=== PATIENT | female | born 1950 | race Caucasian/White ===

== ENCOUNTER 2022-08-02 11:30 | Inpatient (IN) | payer MEDICARE, OTHER ==
[2022-08-02] MEDS ORDERED: SODIUM CHLORIDE FLUSH 0.9% 10 ML SYRINGE IVP PRN (12:21)
[2022-08-02] MEDS ORDERED: ONDANSETRON ODT 4 MG TABLET TL PRN (12:38)
[2022-08-02] MEDS ORDERED: oxyCODONE 5 MG TABLET PO PRN (12:38)
[2022-08-02] MEDS ORDERED: ONDANSETRON 4 MG/2 ML VIAL IVP PRN (12:38)
[2022-08-02] MEDS ORDERED: ACETAMINOPHEN 325 MG TABLET PO PRN (12:38)
[2022-08-02] MEDS ORDERED: PROCHLORPERAZINE 10 MG/2 ML VIAL IVP PRN (12:38)
--- NOTE | 2022-08-02 17:07 | HISTORY & PHYSICAL EXAMINATION ---
Chief Complaint - Chief Complaint Chief Complaint: Weakness and fatigue History of Present Illness - Admitted From Admitted From:: [facility] emergency room via transfer - History Obtained From Records Reviewed: [facility] and [facility] ER records History obtained from: Patient Exam Limitations: Patient is very forgetful. - History of Present Illness HPI Comment/Other: This is a very juan lady who has hepatocellular CA that she feels was diagnosed in the summer 2019. She says that she is otherwise "healthy" And has no recollection of her other past medical history. I had asked her about any other illnesses or diseases and she says that to her knowledge she did not have any And that this hepatocellular cancer came from out of "nowhere" in a healthy body but when I read the past medical history from [facility] emergency room she has a history of lymphoma, breast cancer, esophageal variceal bleeding, portal hypertension from cirrhosis which is from [place]. She remembers getting diagnosed with cancer in 2019 when she was transferred to [facility] in [place] from [facility]. She had a urinary tract infection and while at [facility] the incidentally found the cancer. She was treated with an experimental protocol at [facility] that summer. She thinks that she had some improvement and regression of disease and did not get any further treatment until February 2022. Her primary care provider is Melanie Talbert who is with [facility] And her oncologist is Dr. Bueno at [facility]. She says that she is also followed at [facility] by Dr. Driss Bain for an experimental protocol. She has waxing and waning energy levels. She is tired most of the time and it was not until yesterday that that fatigue really overwhelmed her. She has a poor appetite. She is supposed to be taking lactulose. But she hates the taste of the banana green 1 and she was taking it up to 3 times a day and stool was just "pouring out of me". She had a recent change where she and her oncologist agreed to reduce her lactulose to twice a day and a different flavor and she was able to tolerate it. She denies any antecedent fever, chills. Vomiting. She does not have any coughing, chest congestion. She denies sore throat. No abdominal pain. No urgency, frequency, dysuria. Yesterday she had a sudden decrease in energy. She cannot really say why. She was so weak that she fell down a couple of times at home. She also started "leaking from my rectum" with quite a bit of blood. She does not remember that she had esophageal variceal bleeding with banding in the past. And that she used to be on long-term Eliquis for atrial fibrillation. She does not remember having lithotripsy in November of this year for a UTI. The bright red blood per rectum continued until she went to the emergency room. She does not remember if she had any in the emergency room. I do not have any notes in the ER with regards to a dictation so I am unaware if there were bleeding then. She was seen in the [facility] emergency room because of the weakness and falling yesterday. The emergency room provider that called me today is Dr. Juan Patel. He is not the original provider. She was described as a simple weakness, dehydration with hepatic encephalopathy needing some lactulose and antibiotics. She was there overnight, and they cannot find any bed to transfer her to. The usually transfer to [facility] in [place] but there are no beds available and they have called our facility to accept her.He did not mention that she is on Eliquis and she is having bright red blood per rectum. He did also not mention that she has esophageal variceal bleeding history with banding. I had made it clear to him on excepting her in transfer that I did not have specialty services here. That if the family's expectation or the patient's expectation was that we would provide that was not something that we could offer. He assured me that this was a simple admission for antibiotics and IV fluids. Hemoglobin was 10.3. Prior hemoglobins in June of this year were 10.1 and 10.4. Platelets were 186 and stable. Sodium was 131, potassium 4.7, BUN 35, creatinine 1.89. Her previous creatinine was 1.43 and 1.59. It is noted that her specimen is icteric. Ammonia level was 100. The patient states that her usual ammonia level is 50. INR was 1.4. Portable chest x-ray showed clear lungs, no focal parenchymal infiltrate or effusion. There is no radiographic evidence of acute cardiopulmonary process. A quick review of her medication list is that of apixaban, Estrace, ferrous sulfate, Diflucan, folic acid, gabapentin, Atarax, lactulose, magnesium oxide, methenamine, Bactroban, Corgard, nystatin, Prilosec, spironolactone, torsemide, and Kenalog cream. In their emergency room she received sodium chloride, lactulose, Rocephin, and Eliquis. History - Past Medical History Cardiovascular: reports: Atrial flutter, Atrial fibrillation Endocrine/Autoimmune: reports: Type 2 diabetes GI: reports: GERD, Esophageal varices (Status post banding unknown date), Cholelithiasis (History of cholecystectomy), Other (Portal h ypertension/SANTOS/cirrhosis) PUMP ROOM OPERATOR: reports: Endometriosis, Breast cancer (Left partial mastectomy January 2020), Other (G4, P3) : reports: Incontinence, Chronic bladder infection (And pyelonephritis), Kidney stones (Left ureteral stent February 2020, lithotripsy March 2020, lithotripsy November 2021) Musculoskeletal: reports: Other (Left foot fracture, Dupuytren's contracture both hands) Derm: reports: None Other Past Medical History: Non-Hodgkin's lymphoma, status post CHOP and chemotherapy 2007. History of pancytopenia - Past Surgical History General: reports: Colonoscopy (July 2015, July 2021), EGD (July 2021) Ortho: reports: Other (Hand surgery, left, September 2016 for release of Dupuytren's) /PUMP ROOM OPERATOR: reports: Endometrial ablation, Oophrectomy HEENT: reports: Tonsil/Adenoidectomy - Family & Social History Family History Comment/Other: Mother at age 94 of old age. Dad at age 64 of coronary artery disease/heart attack. 1 sister of coronary artery disease/heart attack. 1 sister of lung cancer. 2 brothers are alive but 1 is trying to survive rectal cancer. 3 children are healthy Living arrangement: At home Living Situation: With family Social History Notes: Her granddaughter and 2 great grandkids moved in with her for 5 years ago. It is worked out really well. The patient still drives, pays most of her bills, and is able to complete her activities of daily living. She started smoking in her mid 20s, approximately 1974. She quit smoking in 1999. She smokes 15 cigarettes a day. No history of alcohol abuse and no history of recreational substance abuse. She is . 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 [employer] - Substance History Use: Uses substance without health or social issues: NONE - POLST Patient has POLST: No POLST Status: Full Code (If she has progression of her disease and she is now considered "terminal" or if she has brain damage she does not want to be resuscitated) Meds/Allgy - Home Medications Home Medications: Ambulatory Orders Medication Instructions Recorded Confirmed Apixaban [Eliquis] 5 mg PO BID 08/02/22 08/02/22 Folic Acid 1 mg PO DAILY 08/02/22 08/02/22 Lactulose 30 gm PO TID PRN MDD 90 gm 08/02/22 08/02/22 Magnesium Oxide [Magnesium] 400 mg PO QPM 08/02/22 08/02/22 Methenamine Hippurate [Hiprex] 1 gm PO BID 08/02/22 08/02/22 Omeprazole Magnesium 20 mg PO QDAC 08/02/22 08/02/22 Spironolactone [Aldactone] 100 mg PO DAILY 08/02/22 08/02/22 Torsemide 40 mg PO DAILY 08/02/22 08/02/22 hydrOXYzine HCL [Hydroxyzine HCl] 25 - 50 mg PO QPM PRN 08/02/22 08/02/22 nadoloL [Corgard] 20 mg PO BID 08/02/22 08/02/22 - Allergies Allergies/Adverse Reactions: Allergies Allergy/AdvReac Type Severity Reaction Status Date / Time Penicillins Allergy Unknown Unknown Verified 08/02/22 14:10 Review of Systems - Constitutional Constitutional: reports: Fatigue, Malaise, Weakness, Poor appetite. denies: Fever, Chills, Diaphoresis, Night sweats - Eyes Eyes: reports: Corrective lenses, Other (No cataracts or glaucoma). denies: Pain, Irritation, Amaurosis, Blurred vision - Ears, Nose & Throat Ears, Nose & Throat: denies: Ear pain, Hearing loss, Hearing aids, Tinnitus - Cardiovascular Cariovascular: reports: Irregular heart rate, Palpitations, Chest pain, Edema, Other (All of the symptoms have been in the past and not bothering her right now) - Respiratory Respiratory: denies: Cough, Sputum production, Wheezing, Snoring, SOB at rest, SOB with exertion - Gastrointestinal Gastrointestinal: reports: Diarrhea, Change in bowel habits, Bloody stools, Reflux/heartburn, Poor appetite. denies: Abdominal pain, Abdominal distention, Constipation, Coffee grounds emesis, Bloating - Genitourinary Genitourinary: reports: Incontinence. denies: Dysuria, Frequency, Urgency, Hematuria, Flank pain, Nocturia - Musculoskeletal Musculoskeletal: reports: Joint pain (Knee bothers her off-and-on). denies: Muscle pain, Back pain, Muscle aches, Stiffness - Integumentary Integumentary: denies: Rash, Pruritis, Lesions, Dryness - Neurological Neurological: reports: General weakness, Dizziness, Memory problems. denies: Focal weakness, Headache, Numbness, Pre-existing deficit, Abnormal gait, Seizures, Incoordination, Slurred speech - Psychiatric Psychiatric: reports: Hallucinations (In the past and currently). denies: Depression, Anxiety, Suicidal - Endocrine Endocrine: denies: Polyuria, Polydypsia, Polyphagia, Intolerance to cold - Hematologic/Lymphatic Hematologic/Lymphatic: reports: Anemia, Blood clots, Lymphadenopathy, Bleeding tendencies, Recurrent infections Prior Level of Functionality: She states that she still drives a car, feed yourself. Dresses her self. Pays most of the bills. Granddaughter moved in with her. Granddaughter helps a lot with the day-to-day running and keeping her "on track" she denies using a cane or a walker Exam - Vital Signs Reviewed Vital Signs: Yes Vital Signs: Vital Signs x48h Temp Pulse Resp BP Pulse Ox 08/02/22 16:00 36.4 C L 72 18 97/46 L 100 08/02/22 13:30 36.9 C 73 18 102/51 L 100 - Physical Exam General Appearance: positive: No acute distress, Alert (She says she feels much better than last night. She felt like she was very confused last night and less confused today.), Other (Unfortunately I cannot tell if this woman really has no recollection of all this other past medical history due to encephalopathy or to dementia) Eyes Bilateral: positive: PERRL, EOMI, Other (Wearing glasses) ENT: positive: No signs of dehydration Neck: positive: No JVD. negative: Stiff neck Respiratory: positive: No respiratory distress. negative: Wheezes, Rales, Rhonchi Cardiovascular: positive: Regular rate & rhythm (I am not hearing any regular rate and rhythm) Peripheral Pulses: positive: 1+ Abdomen: positive: Non-tender, No organomegaly, Other (Hypoactive bowel sounds) Back: negative: CVA tenderness (R), CVA tenderness (L) Skin: positive: No rash, Warm, Other (Tanned or icteric) Extremities: positive: Full ROM, Pedal edema (Around the ankles) Neurologic/Psychiatric: positive: CN's nml (2-12), Motor nml (No asterixis. She has some mild generalized weakness but no focal weakness), Disoriented to place. negative: Facial droop, Slurred/abnml speech (Speech is not slurred, lucid sentence structure) Conclusion/Plan - Problem List (1) Hepatic encephalopathy Conclusion/Plan: At this time it was attributed to poor p.o. intake, and a UTI worsening and already baseline encephalopathy. I asked the patient several times and she is firm and stating that she is compliant with her lactulose on a daily basis. Now she has a story of the bright red blood per rectum so could she be having an upper GI bleed? The latter is most unlikely and that she is not hypotensive and tachycardic and does not appear to have any manifestation of hemorrhage. Plan: Inpatient status Treat underlying causes of the encephalopathy Resume lactulose Check ammonia levels daily (2) UTI (urinary tract infection) Conclusion/Plan: At this time there is no indication that she has sepsis from a urinary tract infection. She does not have flank pain indicating pyelonephritis. I do worry about that considering she has a history of nephrolithiasis and multiple lithotripsies as well as a ureteral stent. There is no abdominal pain with this. Plan: Rocephin to be resumed. Qualifiers: Urinary tract infection type: acute cystitis (3) Atrial fibrillation Conclusion/Plan: Medication list has her on Corgard, Eliquis. She received Eliquis in the emergency room today. I will resume Corgard with parameters. Currently rate is controlled. I hesitate to resume her Eliquis Qualifiers: Atrial fibrillation type: persistent (not longstanding) Qualified Code(s): I48.19 - Other persistent atrial fibrillation; I48.1 - Persistent atrial fibrillation (4) History of diabetes mellitus Conclusion/Plan: She states that she does not have diabetes. Gets in her past medical history. Random glucose was acceptable in the ER at [facility]. I will recheck her glucose tomorrow. In the meantime she will be on a carb restricted diet, (5) Dehydration Conclusion/Plan: As described by the ER doctor. She already received fluids before she got here. Probably 2 L from what I can see. She had some acute kidney injury with this. Recheck her labs tomorrow morning. I will not give maintenance fluids to avoid any worsening problems with ascites or cirrhosis fluid retention (6) Hepatocellular carcinoma Conclusion/Plan: She is telling me that she has a primary liver cancer. But she does not remember having lymphoma nor does she remember having breast cancer. Unfortunate think her memory is suspect at this time for me. I am requesting medical records from [facility] to see if they can clear up some of this issue. (7) Full code status Conclusion/Plan: She is very clear in stating that if she has progression of her disease and there is no more treatment of her, she does not want to live. She also states that if she has brain damage she does not want to live. However, if there is any great area she would like us to do full code which includes CPR and resuscitation. I explained to her what that means and what it would entail. I do not recommended. However she is not really thought about this beyond the living will nor has she discussed it with her children. So by default she will be full code and then may be later can make different arrangements depending on on her discussion with her children (8) Bright red blood per rectum Conclusion/Plan: In the context of a patient with cirrhosis, hepatocellular cancer, portal hypertension and previous variceal bleeding with banding. She does not appear to be hemodynamically unstable with this. Plan: Proton pump inhibitor The beta-shant to be used with her cirrhosis will be used here Already on Rocephin for the UTI Check hemoglobin now Transfuse as needed so I will type and screen - Lab Results Lab results reviewed: Yes - Diagnostic Imaging Results Diagnostic Imaging Results: positive: Final report reviewed Diagnostic Imaging Results Comments: Records from [facility] show a chest x-ray without acute cardiopulmonary process - EKG Results EKG Interpreted Independently: No Core Measures - Anticipated LOS I expect patient to be DC'd or transferred within 96 hours.: Yes - DVT/VTE - Prophylaxis VTE/DVT Device ordered at admit?: Yes
[2022-08-02 19:30] LABS: BASOPHILS % (AUTO) 0.6 %; EOSINOPHILS # (AUTO) 0.1 10^3/uL (0.0-0.7); EOSINOPHILS % (AUTO) 2.3 %; HCT - HEMATOCRIT 27.7 % (37.0-47.0); HGB - HEMOGLOBIN 8.8 g/dL (12.0-16.0); LYMPHOCYTES % (AUTO) 20.1 %; MEAN CORPUSCULAR HEMOGLOBIN 32.4 pg (27.0-31.0); MEAN CORPUSCULAR HGB CONC 31.8 g/dL (32.0-36.0); MEAN CORPUSCULAR VOLUME 101.8 fL (81.0-99.0); MEAN PLATELET VOLUME 10.5 fL (7.9-10.8); MONOCYTES # (AUTO) 0.5 10^3/uL (0.0-1.0); MONOCYTES % (AUTO) 11.3 %; NEUTROPHILS # (AUTO) 3.1 10^3/uL (1.5-6.6); NEUTROPHILS % (AUTO) 65.1 %; PLT - PLATELET COUNT 134 10^3/uL (130-450); RED BLOOD COUNT 2.72 10^6/uL (4.20-5.40); RED CELL DISTRIBUTION WIDTH 16.6 % (12.0-15.0); WHITE BLOOD COUNT 4.8 x10^3/uL (4.8-10.8)
[2022-08-02] MEDS ORDERED: NON FORMULARY MED (Hydroxyzine Hcl [Hydroxyzine Hcl] 25 MG Tablet) PO PRN (19:48)
[2022-08-02] MEDS ORDERED: LACTULOSE 10 GM /15 ML UDC PO PRN (20:03)
[2022-08-02] MEDS ORDERED: hydrOXYzine PAMOATE 25 MG CAPSULE PO PRN (20:29)
[2022-08-02] MEDS: nadoloL 20 MG TABLET PO SCH (21:18)
[2022-08-02] MEDS: MAGNESIUM OXIDE 400 MG TABLET PO SCH (21:19)
[2022-08-02] MEDS: APIXABAN 5 MG TABLET PO SCH (21:19)
[2022-08-02] MEDS: SODIUM CHLORIDE FLUSH 0.9% 10 ML SYRINGE IVP SCH (21:28)
[2022-08-03 04:55] LABS: BASOPHILS % (AUTO) 0.5 %; EOSINOPHILS # (AUTO) 0.2 10^3/uL (0.0-0.7); EOSINOPHILS % (AUTO) 4.4 %; HCT - HEMATOCRIT 24.9 % (37.0-47.0); HGB - HEMOGLOBIN 8.2 g/dL (12.0-16.0); LYMPHOCYTES # (AUTO) 0.9 10^3/uL (1.5-3.5); LYMPHOCYTES % (AUTO) 24.7 %; MEAN CORPUSCULAR HEMOGLOBIN 33.3 pg (27.0-31.0); MEAN CORPUSCULAR HGB CONC 32.9 g/dL (32.0-36.0); MEAN CORPUSCULAR VOLUME 101.2 fL (81.0-99.0); MEAN PLATELET VOLUME 11.6 fL (7.9-10.8); MONOCYTES # (AUTO) 0.4 10^3/uL (0.0-1.0); MONOCYTES % (AUTO) 11.8 %; NEUTROPHILS # (AUTO) 2.1 10^3/uL (1.5-6.6); NEUTROPHILS % (AUTO) 58.1 %; PLT - PLATELET COUNT 88 10^3/uL (130-450); RED BLOOD COUNT 2.46 10^6/uL (4.20-5.40); RED CELL DISTRIBUTION WIDTH 16.3 % (12.0-15.0); WHITE BLOOD COUNT 3.7 x10^3/uL (4.8-10.8)
[2022-08-03 05:09] LABS: ALBUMIN 1.8 g/dL (3.2-5.5); ALBUMIN/GLOBULIN RATIO 0.8 (1.0-2.2); BILIRUBIN,TOTAL 2.1 mg/dL (0.2-1.0); CALCIUM 8.1 mg/dL (8.5-10.3); CREATININE 1.3 mg/dL (0.4-1.0); POTASSIUM 4.2 mmol/L (3.5-5.0)
[2022-08-03] MEDS: SODIUM CHLORIDE FLUSH 0.9% 10 ML SYRINGE IVP SCH ×3 (05:28→17:26)
[2022-08-03] MEDS: TORSEMIDE 20 MG TABLET PO SCH (08:39)
[2022-08-03] MEDS: nadoloL 20 MG TABLET PO SCH ×2 (08:40→20:38)
[2022-08-03] MEDS: APIXABAN 5 MG TABLET PO SCH ×2 (08:42→20:39)
[2022-08-03] MEDS: FOLIC ACID 1 MG TABLET PO SCH (08:43)
[2022-08-03] MEDS: cefTRIAXone 1 GM in SODIUM CHLORIDE 0.9% MINIBAG 100 ML IV SCH (08:43)
--- NOTE | 2022-08-03 11:35 | PHARMACY PROGRESS NOTE ---
- Best Possible Medication History Admit Date and Time: 08/02/22 1221 Processed by: Pharmacy Medication History completed: Yes Patient Interview: Pt unable to participate Secondary Source(s): Pharmacy records, Insurance records As the person ultimately responsible for medication therapy, providers are able to order a medication from an existing home medication list in [facility] via the "Reconcile Routine" prior to Confirmation of that medication by clerical and office support workers. Such practice is discouraged except when the physician, in their clinical judgment, deems that a medical need exists for a medication without regard to previous use.
[2022-08-03 13:10] LABS: BASOPHILS % (AUTO) 0.6 %; EOSINOPHILS # (AUTO) 0.2 10^3/uL (0.0-0.7); EOSINOPHILS % (AUTO) 3.7 %; HCT - HEMATOCRIT 28.4 % (37.0-47.0); HGB - HEMOGLOBIN 9.1 g/dL (12.0-16.0); LYMPHOCYTES # (AUTO) 0.9 10^3/uL (1.5-3.5); LYMPHOCYTES % (AUTO) 17.6 %; MEAN CORPUSCULAR HEMOGLOBIN 32.9 pg (27.0-31.0); MEAN CORPUSCULAR VOLUME 102.5 fL (81.0-99.0); MEAN PLATELET VOLUME 10.4 fL (7.9-10.8); MONOCYTES # (AUTO) 0.5 10^3/uL (0.0-1.0); MONOCYTES % (AUTO) 10.8 %; NEUTROPHILS # (AUTO) 3.2 10^3/uL (1.5-6.6); NEUTROPHILS % (AUTO) 66.9 %; PLT - PLATELET COUNT 137 10^3/uL (130-450); RED BLOOD COUNT 2.77 10^6/uL (4.20-5.40); RED CELL DISTRIBUTION WIDTH 16.3 % (12.0-15.0); WHITE BLOOD COUNT 4.8 x10^3/uL (4.8-10.8)
--- NOTE | 2022-08-03 13:39 | PROVIDER PROGRESS NOTE ---
Subjective - Prog Note Date Prog Note Date: 08/03/22 Prog Note Time: 13:40 - Subjective Pt reports feeling: Improved Subjective: Does not have any new complaints. No abdominal pain. No more bright red blood per rectum. Current Medications - Current Medications Current Medications: Active Medications Acetaminophen (Acetaminophen 325 Mg Tablet) 650 mg PO Q4HR PRN PRN Reason: Pain 1 to 4, or Fever Last Admin: 08/02/22 21:19 Dose: 650 mg Apixaban (Apixaban 5 Mg Tablet) 5 mg PO BID [facility] Last Admin: 08/03/22 08:42 Dose: 5 mg Folic Acid (Folic Acid 1 Mg Tablet) 1 mg PO DAILY [facility] Last Admin: 08/03/22 08:43 Dose: 1 mg Hydroxyzine Pamoate (Hydroxyzine Pamoate 25 Mg Capsule) 25 mg PO QPM PRN PRN Reason: ITCHING Ceftriaxone Sodium 1 gm/ (Sodium Chloride) 100 mls @ 200 mls/hr IV DAILY [facility] Last Infusion: 08/03/22 09:20 Dose: Infused Lactulose (Lactulose 10 Gm /15 Ml Udc) 30 gm PO TID PRN PRN Reason: Constipation Magnesium Oxide (Magnesium Oxide 400 Mg Tablet) 400 mg PO QPM [facility] Last Admin: 08/02/22 21:19 Dose: 400 mg Nadolol (Nadolol 20 Mg Tablet) 20 mg PO BID [facility] Last Admin: 08/03/22 08:40 Dose: 20 mg Ondansetron HCl (Ondansetron Odt 4 Mg Tablet) 4 mg TL Q6HR PRN PRN Reason: Nausea / Vomiting Ondansetron HCl (Ondansetron 4 Mg/2 Ml Vial) 4 mg IVP Q6HR PRN PRN Reason: Nausea / Vomiting Oxycodone HCl (Oxycodone 5 Mg Tablet) 5 mg PO Q4HR PRN PRN Reason: Pain 5 to 7 Prochlorperazine Edisylate (Prochlorperazine 10 Mg/2 Ml Vial) 10 mg IVP Q6HR PRN PRN Reason: Nausea / Vomiting Sodium Chloride (Sodium Chloride Flush 0.9% 10 Ml Syringe) 10 ml IVP PRN PRN PRN Reason: NEEDED PER PROVIDER ORDERS Sodium Chloride (Sodium Chloride Flush 0.9% 10 Ml Syringe) 10 ml IVP 0100,0900,1700 [facility] Last Admin: 08/03/22 08:43 Dose: 10 ml Torsemide (Torsemide 20 Mg Tablet) 40 mg PO DAILY [facility] Last Admin: 08/03/22 08:39 Dose: 40 mg Apixaban [Eliquis] 5 mg PO BID 08/02/22 Folic Acid 1 mg PO DAILY 08/02/22 Lactulose 30 gm PO TID PRN MDD 90 gm 08/02/22 Magnesium Oxide [Magnesium] 400 mg PO QPM 08/02/22 Methenamine Hippurate [Hiprex] 1 gm PO BID 08/02/22 Omeprazole Magnesium 20 mg PO QDAC 08/02/22 Spironolactone [Aldactone] 100 mg PO DAILY 08/02/22 Torsemide 40 mg PO DAILY 08/02/22 hydrOXYzine HCL [Hydroxyzine HCl] 25 - 50 mg PO QPM PRN 08/02/22 nadoloL [Corgard] 20 mg PO BID 08/02/22 Objective - Vital Signs/Intake & Output Reviewed Vital Signs: Yes Vital Signs: Vital Signs x48h Temp Pulse Resp BP Pulse Ox 08/03/22 07:23 36.8 C 69 18 115/53 L 99 Intake & Output: Intake & Output 07/31/22 08/01/22 08/02/22 08/03/22 23:59 23:59 23:59 23:59 Intake Total 338 580 Balance 338 580 - Objective General Appearance: positive: No acute distress, Alert, Other (Managed to eat her breakfast, has been on the phone several times talking to family. She is telling them that she is in the hospital because she has COVID.) Eyes Bilateral: positive: PERRL, EOMI ENT: positive: No signs of dehydration Neck: positive: No JVD. negative: Stiff neck Respiratory: positive: No respiratory distress. negative: Wheezes, Rales, Rhonchi Cardiovascular: positive: Irregularly irregular, Systolic murmur Abdomen: positive: Non-tender, No organomegaly, Nml bowel sounds, No distention Skin: positive: Warm, Dry Extremities: positive: Full ROM Neurologic/Psychiatric: positive: CN's nml (2-12), Motor nml, Disoriented to time - Lab Results Fish Bones: 08/03/22 12:57 08/03/22 04:39 Other Labs: Lab Results x24hrs 08/03/22 08/03/22 08/03/22 Range/Units 12:57 04:39 04:39 WBC 4.8 (4.8-10.8) x10^3/uL RBC 2.77 L (4.20-5.40) 10^6/uL Hgb 9.1 L (12.0-16.0) g/dL Hct 28.4 L (37.0-47.0) % MCV 102.5 H (81.0-99.0) fL MCH 32.9 H (27.0-31.0) pg MCHC 32.0 (32.0-36.0) g/dL RDW 16.3 H (12.0-15.0) % Plt Count 137 (130-450) 10^3/uL MPV 10.4 (7.9-10.8) fL Neut # (Auto) 3.2 (1.5-6.6) 10^3/uL Lymph # (Auto) 0.9 L (1.5-3.5) 10^3/uL [place] # (Auto) 0.5 (0.0-1.0) 10^3/uL Eos # (Auto) 0.2 (0.0-0.7) 10^3/uL Baso # (Auto) 0.0 (0.0-0.1) 10^3/uL Absolute Nucleated RBC 0.00 x10^3/uL Nucleated RBC % 0.0 /100WBC Sodium 132 L (135-145) mmol/L Potassium 4.2 (3.5-5.0) mmol/L Chloride 99 L (101-111) mmol/L Carbon Dioxide 24 (21-32) mmol/L Anion Gap 9.0 (6-13) BUN 38 H (6-20) mg/dL Creatinine 1.3 H (0.4-1.0) mg/dL Estimated GFR (MDRD) 40 L (>89) Glucose 146 H (70-100) mg/dL Calcium 8.1 L (8.5-10.3) mg/dL Total Bilirubin 2.1 H (0.2-1.0) mg/dL AST 25 (10-42) IU/L ALT 21 (10-60) IU/L Alkaline Phosphatase 133 H (42-121) IU/L Ammonia 54.3 H (7-35) umol/L Total Protein 4.0 L (6.7-8.2) g/dL Albumin 1.8 L (3.2-5.5) g/dL Globulin 2.2 (2.1-4.2) g/dL Albumin/Globulin Ratio 0.8 L (1.0-2.2) 08/03/22 08/02/22 Range/Units 04:39 19:20 WBC 3.7 L 4.8 (4.8-10.8) x10^3/uL RBC 2.46 L 2.72 L (4.20-5.40) 10^6/uL Hgb 8.2 L 8.8 L (12.0-16.0) g/dL Hct 24.9 L 27.7 L (37.0-47.0) % MCV 101.2 H 101.8 H (81.0-99.0) fL MCH 33.3 H 32.4 H (27.0-31.0) pg MCHC 32.9 31.8 L (32.0-36.0) g/dL RDW 16.3 H 16.6 H (12.0-15.0) % Plt Count 88 L 134 (130-450) 10^3/uL MPV 11.6 H 10.5 (7.9-10.8) fL Neut # (Auto) 2.1 3.1 (1.5-6.6) 10^3/uL Lymph # (Auto) 0.9 L 1.0 L (1.5-3.5) 10^3/uL [place] # (Auto) 0.4 0.5 (0.0-1.0) 10^3/uL Eos # (Auto) 0.2 0.1 (0.0-0.7) 10^3/uL Baso # (Auto) 0.0 0.0 (0.0-0.1) 10^3/uL Absolute Nucleated RBC 0.00 0.00 x10^3/uL Nucleated RBC % 0.0 0.0 /100WBC Sodium (135-145) mmol/L Potassium (3.5-5.0) mmol/L Chloride (101-111) mmol/L Carbon Dioxide (21-32) mmol/L Anion Gap (6-13) BUN (6-20) mg/dL Creatinine (0.4-1.0) mg/dL Estimated GFR (MDRD) (>89) Glucose (70-100) mg/dL Calcium (8.5-10.3) mg/dL Total Bilirubin (0.2-1.0) mg/dL AST (10-42) IU/L ALT (10-60) IU/L Alkaline Phosphatase (42-121) IU/L Ammonia (7-35) umol/L Total Protein (6.7-8.2) g/dL Albumin (3.2-5.5) g/dL Globulin (2.1-4.2) g/dL Albumin/Globulin Ratio (1.0-2.2) ABX Reporting Has patient been on IV antibiotics over the past 48 hours?: Yes Assessment/Plan - Problem List (1) Hepatic encephalopathy Impression: As presented by [facility] ER, it was attributed to poor p.o. intake, and a UTI worsening and already baseline encephalopathy. I asked the patient several times and she is firm and stating that she is compliant with her lactulose on a daily basis. She then told me she had bright red blood per rectum so could she be having an upper GI bleed? The latter was most unlikely in that she was not hypotensive and tachycardic and did not appear to have any manifestation of hemorrhage. Overnight there has been no bloody stool. Blood pressure stable. Hemoglobin stable. Plan: To continue to treat the underlying cause of her encephalopathy which I think is noncompliance and a UTI. She is on gentle IV fluids, antibiotics, and lactulose Ammonia level is down to the baseline that she tells me is "in the 50s". I did try to call her daughter Helena Reyes. She is at [phone]. No answer and I left a message. (2) UTI (urinary tract infection) Conclusion/Plan: At this time there is no indication that she has sepsis from a urinary tract infection. She does not have flank pain indicating pyelonephritis. I do worry about that considering she has a history of nephrolithiasis and multiple lithot ripsies as well as a ureteral stent. There is no abdominal pain with this. We called [facility] ER today and urine culture is negative so far. Plan: Rocephin day #3/5 Qualifiers: Urinary tract infection type: acute cystitis (3) Atrial fibrillation Conclusion/Plan: Medication list has her on Corgard, Eliquis. She received Eliquis in the emergency room 08/02. I resumed Corgard with parameters. Currently rate is controlled In the 70s. I hesitated to resume her Eliquis in light of bright red blood per rectum and history of esophageal varices. Overnight there has been no further bleeding and her hemoglobin is stable. I will resume Eliquis. I will also discuss this with her oncologist. Qualifiers: Atrial fibrillation type: persistent (not longstanding) Qualified Code(s): I48.19 - Other persistent atrial fibrillation; I48.1 - Persistent atrial fibrillation (4) History of diabetes mellitus Conclusion/Plan: She states that she does not have diabetes. It was documented in her past medical history. Random glucose was acceptable in the ER at [facility]. Today's random glucose is 146. Check A1c tomorrow. Continue carb restricted diet. On sliding scale insulin. (5) DehydrationResolved Conclusion/Plan: As described by the ER doctor. She already received fluids before she got here. Probably 2 L from what I can see. She had some mild acute kidney injury with this. I did not give maintenance fluids to avoid any worsening problems with ascites or cirrhosis fluid retention. Her creatinine is 1.3 today. This is an improvement from the 1.8 it was at [place]. (6) Hepatocellular carcinoma Conclusion/Plan: She is telling me that she has a primary liver cancer. But she does not remember having lymphoma nor does she remember having breast cancer. Unfortunately, I think her memory is suspect at this time for me. I am requesting medical records from [facility] to see if they can clear up some of this issue. As of this afternoon there is still no records. So I have asked her METAL BONDING PRESS OPERATOR to call [facility] again and to specifically ask for the February 2021 records. (7) Full code status Conclusion/Plan: She is very clear in stating that if she has progression of her disease and there is no more treatment of her, she does not want to live. She also states that if she has brain damage she does not want to live. However, if there is any ham area, she would like us to do full code which includes CPR and resuscitation. I explained to her what that means and what it would entail. I do not recommended. However she has not really thought about this beyond the living will nor has she discussed it with her children. So by default she will be full code and then may be later can make different arrangements depending on on her discussion with her children. Again, I have called her daughter Helena Reyes and left a message for her to give us a call (8) Bright red blood per rectum Conclusion/Plan: In the context of a patient with cirrhosis, hepatocellular cancer, portal hypertension and previous variceal bleeding with banding. She did not appear to be hemodynamically unstable with this. Overnight blood pressure was low with 90 systolic. This morning she is 115 systolic. She is nontachycardic. Hemoglobin stable. Plan: Continue Proton pump inhibitor The beta-shant to be used with her cirrhosis will be used here Already on Rocephin for the UTI Check hemoglobin later this afternoon
[2022-08-03] MEDS: MAGNESIUM OXIDE 400 MG TABLET PO SCH (20:39)
[2022-08-04] MEDS: SODIUM CHLORIDE FLUSH 0.9% 10 ML SYRINGE IVP SCH ×2 (01:00→09:20)
[2022-08-04 05:17] LABS: BASOPHILS % (AUTO) 0.9 %; EOSINOPHILS # (AUTO) 0.2 10^3/uL (0.0-0.7); EOSINOPHILS % (AUTO) 3.7 %; HCT - HEMATOCRIT 26.6 % (37.0-47.0); HGB - HEMOGLOBIN 8.6 g/dL (12.0-16.0); LYMPHOCYTES % (AUTO) 20.6 %; MEAN CORPUSCULAR HEMOGLOBIN 33.1 pg (27.0-31.0); MEAN CORPUSCULAR HGB CONC 32.3 g/dL (32.0-36.0); MEAN CORPUSCULAR VOLUME 102.3 fL (81.0-99.0); MEAN PLATELET VOLUME 12.5 fL (7.9-10.8); MONOCYTES # (AUTO) 0.5 10^3/uL (0.0-1.0); MONOCYTES % (AUTO) 10.8 %; NEUTROPHILS % (AUTO) 63.6 %; PLT - PLATELET COUNT 81 10^3/uL (130-450); RED CELL DISTRIBUTION WIDTH 16.5 % (12.0-15.0); WHITE BLOOD COUNT 4.7 x10^3/uL (4.8-10.8)
[2022-08-04 05:33] LABS: ALBUMIN 1.9 g/dL (3.2-5.5); ALBUMIN/GLOBULIN RATIO 0.8 (1.0-2.2); BILIRUBIN,TOTAL 2.1 mg/dL (0.2-1.0); CALCIUM 8.1 mg/dL (8.5-10.3); CREATININE 1.1 mg/dL (0.4-1.0); TOTAL PROTEIN 4.2 g/dL (6.7-8.2)
[2022-08-04 08:04] VITALS: BP 100/51
--- NOTE | 2022-08-04 08:29 | Discharge Plan ---
Discharge Plan Problem Reviewed?: Yes Disposition: Home, Self Care Condition: Stable Prescriptions: Nitrofurantoin [Macrobid] 100 mg PO BID #14 cap Diet: Low Sodium Activity Restrictions: Activity as Tolerated Shower Restrictions: No Driving Restrictions: No (DMV request to test your driving has been submitted) Health Concerns: We were asked to accept you in transfer from the emergency room at [facility] in [place]. He presented to them as confused, weak. Unfortunately you have a primary liver cancer that you are getting radiation beads 4. The last time you were treated was in April. You are also noncompliant with your use of lactulose. In looking at the records from [facility], you seem to appear in their emergency room quite frequently because of the confusion you get from not taking your lactulose. Their evaluation found you to be confused and weak from a high ammonia level. You also had a urinary tract infection with a bacteria called Enterococcus faecalis Your blood cultures were also positive but I do think that those are a contamination. You are not really having signs and symptoms of a bacteria in your blood. Plan of Treatment: 1. We have given you your lactulose and your ammonia level went from 100 and down to 50. You tell me that the 50s is about the normal range for you. Please, please make sure you are taking your lactulose. It will reduce the amount of times you have to show up in the emergency room and improve your overall mentation and mental alertness. I am worried that you are more disabled than you realize. The only example I can give you is that you told me you were completely healthy before you got your liver cancer. I asked about any other diseases or surgeries or illnesses and you said you had none. I think that you truly forgot that you have had breast cancer, lymphoma, and varicose veins of the esophagus that can lead to hemorrhage and . Those are all very important things for a doctor to know about a patient and you did not remember them. The only way I knew to look for them was to look at your old medical adria rds. As such, I am asking the DMV to retest you for your driving skills to make sure you are safe to drive. 2. You have done very well with the antibiotic. We are going to be sending you home with Macrobid to take twice a day for the next 7 days. You feel that Macrobid is not an antibiotic that works for you. But the science behind treating Enterobacter faecalis states that either gave you ampicillin or Macrobid. Fosfomycin is usually not indicated. You are allergic to ampicillin/penicillin so you will be taking Macrobid. 3. You are in a very fragile state. I do worried that the Staph aureus blood culture that showed bacteria in your blood may end up being a positive result. Currently I think it is a false positive. I think it is a contamination of the culture process and that you truly do not have an infection. But you do have radiation beads in your liver. That being said, radiation beads in your liver would cause you to have infection such as Enterococcus or E. coli but not Staph. But only time will tell. If you end up having fevers, chills, more weakness, more confusion you will need to return to your emergency room. 4. Please see your primary care provider in follow-up for this urinary tract infection in the next week. I did try and call Dr. Bueno's office and left a message for them to call me. As of the time of this dictation on the morning of discharge they have not returned my phone call. They do know you are in the hospital. 5. We did talk about advance care planning for the time that would come when you can no longer take care of yourself. We talked about resuscitation status and you were of the opinion that if you were brain- or where at the end of a terminal illness, you do not want to be resuscitated. As this disease progresses, your quality of life will sharply deteriorate. Only you can determine what makes your life happy one, a contended one, or one that you do not want to live. Please share with your family in the next few weeks what you think makes life worth living for yourself. If those things that made life worth living were to disappear, would you then consider changing your resuscitative status? Care Goals: In the face of having liver cancer, you wish to live as long as possible. Assessment: The patient exhibits more memory loss than she realizes, but describes a lifestyle where she is still independent with eating, and dressing and feeding herself. I have discussed her admission, illness, and treatment plan with her daughter who is her power of concept artist. Patient gave me permission to do so. Daughter and patient state they will follow through. No Smoking: If you smoke, Please STOP! Call for help. Follow-up with: PATRIZIA LUNDBERG MD [Physician No Access] - Claudio Bueno MD [Physician No Access] -
[2022-08-04] MEDS: nadoloL 20 MG TABLET PO SCH (09:20)
[2022-08-04] MEDS: TORSEMIDE 20 MG TABLET PO SCH (09:20)
[2022-08-04] MEDS: APIXABAN 5 MG TABLET PO SCH (09:20)
[2022-08-04] MEDS: FOLIC ACID 1 MG TABLET PO SCH (09:20)
[2022-08-04] MEDS: cefTRIAXone 1 GM in SODIUM CHLORIDE 0.9% MINIBAG 100 ML IV SCH (09:20)
[2022-08-04 12:21] LABS: ESTIMATED AVERAGE GLUCOSE 114 mg/dL (70-100); HEMOGLOBIN A1c% 5.6 % (4.27-6.07)
--- NOTE | 2022-08-04 19:18 | DISCHARGE SUMMARY ---
Discharge Summary Admit Date: 08/02/22 Discharge Date: 08/04/22 Discharging Provider: Nell Eduardo MD Primary Care Provider: Melanie Talbert MD Code Status: Attempt Resuscitation Condition at Discharge: Stable Discharge Disposition: 01 Home, Self Care - DIAGNOSES Discharge Diagnoses with Status of Each Condition: 1. Hepatic encephalopathy 2. Medication noncompliance 3. UTI 4. Persistent atrial fibrillation 5. History of diabetes mellitus 6. Dehydration 7. Hepatocellular carcinoma 8. Bright red blood per rectum 9. History of esophageal varices - HPI History of Present Illness: She is an elderly female that has primary hepatocellular cancer. She is also survived lymphoma and breast cancer. She had cirrhosis with SANTOS and has had complications of esophageal varices with banding in the last year. She developed hepatocellular cancer about 2 years ago and treatment has been radiation seeds. Last seed implant was April. All of this was obtained after the patient was admitted. When she was admitted she states that there was nothing wrong with her other than the hepatocellular cancer and that she just had not taken her lactulose and that is why she was encephalopathic. She stated that there is no previous past medical history and she was "completely healthy until the cancer". She was actually first seen at [facility] emergency room in [place]. However they had no beds and asked that she be transferred here and accepted the patient in transfer. - HOSPITAL COURSE Hospital Course: The patient was placed on a low rate of IV fluids, IV antibiotics, and her lactulose was resumed. The next day ammonia level went from 100-50 with good clinical response and that she was much more alert. But still lethargic and speech was slowed. However psychomotor slowing was much improved. On the day of discharge she was awake, alert, and completely appropriate. She agreed that she had not provided me with a complete history and felt it was due to her elevated ammonia level. She was also not happy when I explained that I was probably can be submitting a DMV request to have her retested for her driving. She explained to me that she still drives all over the place, in spite of her hepatic encephalopathy. All of this explained not only to the patient but her daughter who was updated on her case. Patient grew out staph aureus at [facility] lab, but it was over 24 hours after culture was drawn. Urine from [facility] grew out Enterococcus faecalis that was sensitive to ampicillin, Macrobid, and then vancomycin. I do not think that she is clinically infected with staff aureus bacteremia and that she promptly responded to empiric antibiotic therapy for the Enterococcus. I did attempt to order an echocardiogram on her but she was adamant she did not want one. She looked up MyChart for herself and had an echocardiogram done recently. I did explain to her that she did not have staph bacteremia then and I would like to assess her valves now but she declined. She is discharged in stable condition. She is completely awake, alert, and all signs of psychomotor slowing have resolved. Memory appears intact. Temperature is 36.9. Heart rate 70. Blood pressure 100/51. Respirations 16. 100% on room air. She is 5 foot 3 inches tall and weighs 59 kg. Skin is sallow, slightly jaundiced but not severely so. Lungs have diminished breath sounds at the bases but are clear. Abdomen is soft, nontender with hypoactive bowel sounds. Creatinine improved from 1.3-1.1. A1c is 5.6%. She does not have any leg edema. Is able to go from supine to sitting to standing with only standby assist. No increased respiratory effort. She is able to ambulate to the bathroom and back without help. She is discharged in stable condition and greater than 30 minutes was spent coordinating discharge. I have asked her to follow-up with her primary care provider for the UTI. I have also asked her to follow-up with her oncologist. I did leave a message with her oncology office the day before discharge to discuss her case but I did not receive any phone call back. - ALLERGIES Allergies/Adverse Reactions: Allergies Allergy/AdvReac Type Severity Reaction Status Date / Time Penicillins Allergy Unknown Unknown Verified 08/02/22 14:10 - MEDICATIONS Home Medications: Ambulatory Orders Medication Instructions Recorded Confirmed Apixaban [Eliquis] 5 mg PO BID 08/02/22 08/02/22 Folic Acid 1 mg PO DAILY 08/02/22 08/02/22 Lactulose 30 gm PO TID PRN MDD 90 gm 08/02/22 08/02/22 Magnesium Oxide [Magnesium] 400 mg PO QPM 08/02/22 08/02/22 Methenamine Hippurate [Hiprex] 1 gm PO BID 08/02/22 08/02/22 Omeprazole Magnesium 20 mg PO QDAC 08/02/22 08/02/22 Spironolactone [Aldactone] 100 mg PO DAILY 08/02/22 08/02/22 Torsemide 40 mg PO DAILY 08/02/22 08/02/22 hydrOXYzine HCL [Hydroxyzine HCl] 25 - 50 mg PO QPM PRN 08/02/22 08/02/22 nadoloL [Corgard] 20 mg PO BID 08/02/22 08/02/22 Nitrofurantoin [Macrobid] 100 mg PO BID #14 cap 08/04/22 - LABS Result Diagrams: 08/04/22 04:25 08/04/22 04:25
== END 2022-08-04 10:40 | disposition home or self-care (01) | DRG 441 ==
LOC: MS2 12:21
PROVIDERS: ADMIT Specialist; ATTEND Specialist
DX: K76.82 Hepatic encephalopathy (principal); U07.1 COVID-19; C22.0 Liver cell carcinoma; I48.19 Other persistent atrial fibrillation; N30.00 Acute cystitis without hematuria; K62.5 Hemorrhage of anus and rectum; T47.3X6A Underdosing of saline and osmotic laxatives, initial encounter; E11.9 Type 2 diabetes mellitus without complications; E86.0 Dehydration; K75.81 Nonalcoholic steatohepatitis (NASH); Z87.19 Personal history of other diseases of the digestive system; Z85.3 Personal history of malignant neoplasm of breast; Z85.72 Personal history of non-Hodgkin lymphomas; R63.0 Anorexia; B95.2 Enterococcus as the cause of diseases classified elsewhere
CPT/HCPCS: 36415; 80053; 82140; 82607; 82746; 83036; 83735; 85025; 87040; A9270